=== PATIENT | male | born 1975 | race Caucasian/White ===

== ENCOUNTER 2019-07-23 07:20 | Outpatient (CLI) | payer BC ==
[2019-07-23] MEDS ORDERED: Iopamidol 370 76% 100 ML VIAL ONE (09:00)
--- NOTE | 2019-07-23 10:14 | CT ---
CT ABDOMEN AND PELVIS WITH ORAL AND IV CONTRAST: HISTORY: Insertional hernia. COMPARISON: CT stone protocol from 04/10/2012. FINDINGS: The lung bases are unremarkable. There is a 5 mm low density lesion in the subcapsular aspect of the anterior left liver lobe, close to the dome, too small to characterize. No calcified gallstones are seen. The pancreas, adrenal glands and spleen are normal. There is a 6 mm low density lesion in the left upper medial renal cortex, too small to characterize. There is a 14 mm cyst in the superior pole of the right kidney and a 3.5 cm cortical cyst in the righ t mid kidney. Just inferior to this is a 15 mm heterogenous lesion in the right renal cortex, which i s indeterminate. The prostate is mildly enlarged. No hydroureteronephrosis is seen on either side. The small bowel loops are not abnormally dilated. There is mild sigmoid diverticulosis. There is segm ental concentric wall thickening of the short segment of the right/ascending colon, suspicious for an apple core mass. The patient is post appendectomy. An 8 mm lymph node is seen in the ileocecal chain . No other enlarged lymph nodes are otherwise noted in the abdomen or pelvis. There are a couple of small fat-containing left paramedian ventral hernias. The previously noted righ t paraumbilical fat-containing hernia is again noted. There is mild patchy induration within the fat, which was not seen on the previous exam. There is no evidence of aneurysmal dilatation of the abdominal aorta. There are pars articularis defe cts bilaterally at the L5 level. IMPRESSION: 1. Small indeterminate lesions in the liver and left kidney, too small to characterize. 2. Right renal cyst. 3. A 15 mm heterogeneous lesion in the right kidney. This is an indeterminate lesion and malignancy c annot be excluded. Urologic consultation is recommended. 3. Probable applecore lesion in the ascending colon. Colonoscopy should be performed. 4. Sigmoid diverticulosis. 5. 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 6. Small fat-containing left paramedian ventral herniae. 7. Prostatic enlargement. CODE T POS: KELLY
== END 2019-07-23 07:21 | disposition home or self-care (01) ==
LOC: NAV CT 07:20
PROVIDERS: ATTEND Surgery
DX: K43.2 Incisional hernia without obstruction or gangrene (principal); K76.9 Liver disease, unspecified; N28.89 Other specified disorders of kidney and ureter; N28.1 Cyst of kidney, acquired; K57.30 Diverticulosis of large intestine without perforation or abscess without bleeding; K42.9 Umbilical hernia without obstruction or gangrene; K43.9 Ventral hernia without obstruction or gangrene; N40.0 Benign prostatic hyperplasia without lower urinary tract symptoms
CPT/HCPCS: 74177; Q9967